=== PATIENT | male | born 1995 | race Caucasian/White ===

== ENCOUNTER 2022-12-29 14:32 | Emergency (ER) | payer OTHER ==
[~2022-12-29] VITALS: Ht 190.5 cm; Wt 185.1 kg
[2022-12-29] MEDS ORDERED: AMOCLA875 PO (16:33)
== END 2022-12-29 16:55 | disposition home or self-care (01) ==
LOC: ER 14:32
DX: S61.412A Laceration without foreign body of left hand, initial encounter (principal); W45.8XXA Other foreign body or object entering through skin, initial encounter; Y99.0 Civilian activity done for income or pay; Z23 Encounter for immunization
CPT/HCPCS: 90714

== ENCOUNTER 2023-01-04 16:39 | Emergency (ER) | payer OTHER ==
[~2023-01-04] VITALS: Ht 190.5 cm; Wt 181.4 kg
[~2023-01-04 16:39] MED LIST: AMOCLA875 PO
== END 2023-01-04 17:05 | disposition home or self-care (01) ==
LOC: ER 16:39
DX: S61.412D Laceration without foreign body of left hand, subsequent encounter (principal)
CPT/HCPCS: 99282

== ENCOUNTER 2023-01-15 11:13 | Emergency (ER) | payer OTHER ==
[~2023-01-15] VITALS: Ht 190.5 cm; Wt 181.4 kg
[2023-01-15 11:33] VITALS: BP 175/96
== END 2023-01-15 11:43 | disposition home or self-care (01) ==
LOC: ER 11:13
DX: S61.412D Laceration without foreign body of left hand, subsequent encounter (principal)
CPT/HCPCS: 99281

== ENCOUNTER 2023-06-17 22:29 | Emergency (ER) | payer OTHER ==
[~2023-06-17] VITALS: Ht 182.9 cm; Wt 181.4 kg
[2023-06-17 22:55] VITALS: BP 191/90
[2023-06-17] MEDS ORDERED: AMOCLA875 PO (23:15)
== END 2023-06-17 23:29 | disposition home or self-care (01) ==
LOC: ER 22:29
DX: H66.92 Otitis media, unspecified, left ear (principal); F17.210 Nicotine dependence, cigarettes, uncomplicated
CPT/HCPCS: 96372; 99283-25; A9270; J1885

== ENCOUNTER 2024-09-17 16:10 | Emergency (ER) | payer OTHER ==
[~2024-09-17] VITALS: Ht 190.5 cm; Wt 142.9 kg
[2024-09-17 16:25] VITALS: BP 155/77
[2024-09-17] MEDS ORDERED: Ondansetron HCl 2 MG / ML 2ML Vial IV PRN (16:35)
[2024-09-17 17:10] LABS: Albumin, Blood 3.5 g/dL (3.4-5.0); Bilirubin, Total 0.5 mg/dL (0.1-1.0); Bun/Creatinine Ratio 16.4 (12.0-20.0); Calcium, Blood 8.6 mg/dL (8.5-10.1); Creatinine, Blood 0.85 mg/dL (0.60-1.20); Globulin, Blood 3.5 g/dL (2.2-4.0); Potassium, Blood 3.8 mmol/L (3.5-5.5)
[2024-09-17 17:11] LABS: BASOPHILS ABSOLUTE AUTO 0.03 K/mm3 (0.00-0.23); BASOPHILS PERCENT AUTO 1 % (0-2); EOSINOPHILS ABSOLUTE AUTO 0.12 K/mm3 (0.00-0.68); EOSINOPHILS PERCENT AUTO 2 % (0-6); Hematocrit 40.6 % (37.0-53.0); Hemoglobin 13.2 g/dL (13.5-17.5); IMMATURE GRAN ABSOLUTE AUTO 0.05 K/mm3 (0.00-0.10); IMMATURE GRAN PERCENT AUTO 1 % (0-1); LYMPHOCYTES ABSOLUTE AUTO 1.06 K/mm3 (0.84-5.20); LYMPHOCYTES PERCENT AUTO 16 % (21-46); MONOCYTES ABSOLUTE AUTO 0.32 K/mm3 (0.16-1.47); MONOCYTES PERCENT AUTO 5 % (4-13); Mean Corpuscular HGB Conc 32.5 g/dL (31.5-36.5); Mean Corpuscular Volume 86 fL (80-100); Mean Platelet Volume 11.8 fL (9.1-12.4); NEUTROPHILS ABSOLUTE AUTO 5.07 K/mm3 (1.96-9.15); NEUTROPHILS PERCENT AUTO 76 % (41-73); Platelet Count 195 K/mm3 (150-400); RDW Coefficient Variation 14.6 % (11.7-14.2); RDW Standard Deviation 45.5 fL (35.1-46.3); Red Blood Cell Count 4.72 M/mm3 (4.30-5.90); White Blood Cell Count 6.65 K/mm3 (4.00-11.30)
== END 2024-09-17 20:58 | disposition left against medical advice (07) ==
LOC: ER 16:10
PROVIDERS: Student in an Organized Health Care Education/Training Program
DX: Z53.21 Procedure and treatment not carried out due to patient leaving prior to being seen by health care provider (principal)
CPT/HCPCS: 71046; 80053; 84484; 85025

== ENCOUNTER 2024-09-21 23:26 | Emergency (ER) | payer OTHER ==
[~2024-09-21] VITALS: Ht 190.5 cm; Wt 108.9 kg
[2024-09-21 23:48] VITALS: BP 152/87
== END 2024-09-22 01:03 | disposition home or self-care (01) ==
LOC: ER 23:26
DX: S93.401A Sprain of unspecified ligament of right ankle, initial encounter (principal); S93.601A Unspecified sprain of right foot, initial encounter; X50.9XXA Other and unspecified overexertion or strenuous movements or postures, initial encounter
CPT/HCPCS: 73610; 73630; 99283-25

== ENCOUNTER 2025-04-11 23:09 | Emergency (ER) | payer OTHER ==
[~2025-04-11] VITALS: Ht 190.5 cm; Wt 138.8 kg
[2025-04-11 23:49] LABS: BASOPHILS ABSOLUTE AUTO 0.04 K/mm3 (0.00-0.23); BASOPHILS PERCENT AUTO 1 % (0-2); EOSINOPHILS ABSOLUTE AUTO 0.10 K/mm3 (0.00-0.68); EOSINOPHILS PERCENT AUTO 2 % (0-6); Hematocrit 38.0 % (37.0-53.0); Hemoglobin 12.9 g/dL (13.5-17.5); IMMATURE GRAN ABSOLUTE AUTO 0.06 K/mm3 (0.00-0.10); IMMATURE GRAN PERCENT AUTO 1 % (0-1); LYMPHOCYTES ABSOLUTE AUTO 1.37 K/mm3 (0.84-5.20); LYMPHOCYTES PERCENT AUTO 20 % (21-46); MONOCYTES ABSOLUTE AUTO 0.54 K/mm3 (0.16-1.47); MONOCYTES PERCENT AUTO 8 % (4-13); Mean Corpuscular HGB Conc 33.9 g/dL (31.5-36.5); Mean Corpuscular Volume 83 fL (80-100); NEUTROPHILS ABSOLUTE AUTO 4.72 K/mm3 (1.96-9.15); NEUTROPHILS PERCENT AUTO 69 % (41-73); NRBC ABSOLUTE 0.00 K/mm3 (0.00-0.02); NRBC Auto 0.0 /100 WBC (0.0-0.2); Platelet Count 223 K/mm3 (150-400); RDW Coefficient Variation 14.0 % (11.7-14.2); RDW Standard Deviation 42.0 fL (35.1-46.3)
[2025-04-12 00:10] LABS: Alanine Aminotransfer (ALT/SGP 42.0 U/L (12-78); Albumin, Blood 3.8 g/dL (3.4-5.0); Albumin/Globulin Ratio 1.1 (0.8-1.8); Anion Gap 11.0 mmol/L (3-11); Aspartate Aminotrans (AST/SGOT 23.0 U/L (12-37); Bilirubin, Total 1.0 mg/dL (0.1-1.0); Blood Urea Nitrogen 15.0 mg/dL (8-24); CO2, Blood 24.0 mmol/L (21-32); Calcium, Blood 8.5 mg/dL (8.5-10.1); Chloride, Blood 98.0 mmol/L (98-108); Creatinine, Blood 0.75 mg/dL (0.60-1.20); Globulin, Blood 3.6 g/dL (2.2-4.0); Glucose, Blood 491.0 mg/dL (70-99); Potassium, Blood 3.8 mmol/L (3.5-5.5); Sodium, Blood 129.0 mmol/L (136-145); Total Protein, Blood 7.4 g/dL (6.4-8.2)
[2025-04-12] MEDS ORDERED: Insulin Regular 100 Unit/ML 1ML Dose IV ONE (02:50)
[2025-04-12 03:16] VITALS: BP 135/99
== END 2025-04-12 03:17 | disposition home or self-care (01) ==
LOC: ER 23:09
PROVIDERS: Student in an Organized Health Care Education/Training Program
DX: S31.21XA Laceration without foreign body of penis, initial encounter (principal); E11.65 Type 2 diabetes mellitus with hyperglycemia; I10 Essential (primary) hypertension; X58.XXXA Exposure to other specified factors, initial encounter; Z79.84 Long term (current) use of oral hypoglycemic drugs
CPT/HCPCS: 80053; 82947; 85025; 85730; 86850; 86900; 86901; 99283; J1815